=== PATIENT | male | born 2000 | race Caucasian/White ===

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

== ENCOUNTER 2023-03-10 17:42 | Emergency (ER) | payer SELFPAY ==
[~2023-03-10] VITALS: Ht 180.3 cm; Wt 100.0 kg
[2023-03-10 18:02] VITALS: BP 134/80; PULSE 79; RESP 16; TEMP 98.8; O2SAT 100
[2023-03-10] MEDS ORDERED: FLUORESCEIN SODIUM 1MG/STRIP RIGHTEYE NR (20:00)
[2023-03-10] MEDS ORDERED: ACETAMINOPHEN 325MG TABLET PO NR (20:00)
[2023-03-10] MEDS ORDERED: FLUORESCEIN SODIUM 1MG/STRIP RIGHTEYE ONE ×2 (20:00→21:45)
[2023-03-10] MEDS ORDERED: ACETAMINOPHEN 325MG TABLET PO ONE (20:00)
[2023-03-10] MEDS ORDERED: IBUP-2029 MT (23:53)
== END 2023-03-11 03:22 | disposition home or self-care (01) ==
LOC: ER 17:42
DX: S02.2XXA Fracture of nasal bones, initial encounter for closed fracture (principal); S00.83XA Contusion of other part of head, initial encounter; H11.33 Conjunctival hemorrhage, bilateral; F12.90 Cannabis use, unspecified, uncomplicated
CPT/HCPCS: 70486; 99284